=== PATIENT | female | born 1990 | race Caucasian/White ===

== ENCOUNTER 2025-10-08 18:35 | Emergency (ER) | payer BC, SELFPAY ==
[2025-10-08 18:36] VITALS: BP 149/102
--- NOTE | 2025-10-08 19:08 | ED.GENMED ---
History of Present Illness
General
Chief Complaint: Vaginal Bleeding
Source: patient
Exam Limitations: none
Time Seen by Provider: 10/08/25 19:01
History of Present Illness
History of Present Illness:
35-year-old G1, P0 currently 10 weeks along presents with light vaginal bleeding. She noticed a change in her discharge yesterday and noticed a pink tinge today. She states when she wiped. When she was in the bathroom she notes a small amount of
blood. No significant abdominal pain. She tried contacting the on-call OB but came here instead. No fevers or chest pain. No shortness of breath. No other complaints. She denies a large amount of blood or clot passing clots.
Phy Exam
Physical Exam
Physical Exam:
General: Well-appearing female no acute respiratory distress
HEENT: Normal cephalic atraumatic
Heart: Regular rate and rhythm
Lungs: Clear no wheeze abdomen is soft nontender nondistended
Extremities: No cyanosis
Course
Orders/Labs/Results
Orders:
Orders
10/08/25 19:06
US W Transvaginal Urgent
Reason For Exam: bleeding
10/08/25 20:01
Type+Screen Urgent
Beta HCG Quantitative Urgent
Is this a screen?: No
Complete Blood Count/With Diff Urgent
Comprehensive Metabolic Panel Urgent
10/08/25 20:10
Urinalysis Reflex To Culture Urgent
Date Specimen was Collected: 10/08/25
Time Specimen was Collected: 22:24
Abnormal Lab Results
10/08/25
20:01
MPV 10.7 H fL
(7.4-10.4)
Absolute Monos (auto) 0.8 H 10^3/uL
(0.1-0.6)
Sodium 134 L mmol/L
(135-145)
10/08/25 20:01
10/08/25 20:01
Vital Signs
Initial and Last Documented VS:
Initial Vital Signs
Temp Pulse Resp BP Pulse Ox
98.1 F 100 20 149/102 100
10/08/25 18:36 10/08/25 18:36 10/08/25 18:36 10/08/25 18:36 10/08/25 18:36
Last Documented Vital Signs
Temp Pulse Resp BP Pulse Ox
98 F 91 20 158/88 98
10/08/25 19:50 10/08/25 22:50 10/08/25 22:50 10/08/25 22:50 10/08/25 22:50
MDM/Problems Addressed
Differential Diagnosis Includes:
Patient describes mild vaginal bleeding currently 10 weeks . She did go through fertility treatments. She has had ultrasounds documenting IUP of a single embryo. She states she has blood type O+ but will recheck. Beta-hCG pending. Will
order ultrasound
*Pulse Oximetry
SaO2: 100
Patient hypoxic: no
*Critical Care Note
Total Time (30-74mins, 75-104mins- exclusive of procedures): Not Applicable
Update Note
Update Note:
Ultrasound reviewed. She is O+ blood type. Beta-hCG 5342. Ultrasound demonstrates sac measuring 7 weeks 4 days. There is no cardiac activity noted. Given the length of the sac there should be cardiac to be noted. This is suspicious
for early demise. Patient has no pain. She notes only spotting. RhoGAM not indicated. Discussed findings with OB. Will have her follow-up to discuss management options
ED Attending Note
-
Portions of this chart may have been created with voice recognition software.� Occasional wrong word or��sound alike� substitutions may have occurred due to the inherent limitations of voice recognition software.
Discharge Plan
Departure
Patient Disposition: Home (Routine Discharge)
Date of Disposition: 10/08/25
Time of Disposition: 22:56
Patient with high blood pressure during this ER visit?: No
Discharge Problem:
Threatened
Instructions: Threatened Miscarriage (DC)
Referrals:
Cece Bolton CRNP [Family Provider, Family Practice]
Activity Restrictions/Additional Instructions:
Please return here for any concerning findings. Otherwise follow-up with your [facility]ST[facility]
Interventions
Interventions:
*Risk Screen - Suicide Last Done: 10/08/25 18:36
*General Assessment Last Done: 10/08/25 18:36
*Neglect/Abuse Screening Last Done: 10/08/25 18:36
*ED- Fall Risk Assessment Last Done: 10/08/25 20:08
*ED COVID-19 Vaccine History Last Done: 10/08/25 19:45
*ED Influenza Vaccine History Last Done: 10/08/25 19:45
ED-Female Genitourinary Assessment Last Done: 10/08/25 20:06
Discharge Date and Time
Print Language: TRINIDADIAN
[2025-10-08 19:50] VITALS: BP 140/89
[2025-10-08 20:12] LABS: Hematocrit 41.5 % (37.0-47.0); Hemoglobin 13.8 g/dL (12.0-16.0); Mean Corp Hgb Conc. 33.3 g/dL (33.0-37.0); Mean Corpuscular Volume 83.2 fL (81.0-99.0); Nucleated Red Blood Cells % 0 %; Platelet Count 219 10^3/uL (130-400); Red Cell Dist. Width 13.6 % (11.5-14.5)
[2025-10-08 20:35] LABS: ALT (SGPT) 28 U/L (0-35); AST (SGOT) 27 U/L (14-36); Albumin 4.3 g/dl (3.5-5.0); Alkaline Phosphatase 62 U/L (38-126); Blood Urea Nitrogen 9 mg/dl (7-17); Calcium 9.6 mg/dl (8.4-10.2); Carbon Dioxide 23 mmol/L (22-30); Chloride 104 mmol/L (98-107); Glucose 82 mg/dl (70-99); Potassium 4.2 mmol/L (3.5-5.1); Sodium 134 mmol/L (135-145); Total Protein 7.7 g/dl (6.3-8.2); eGFR > 60.00
[2025-10-08 20:48] VITALS: BMI 46.6
[2025-10-08 22:50] VITALS: BP 158/88
== END 2025-10-08 23:20 | disposition home or self-care (01) ==
LOC: EMR 18:35
PROVIDERS: Physician Assistant; EMERGENCY PHYSICIAN Emergency Medicine; FAMILY PHYSICIAN Nurse Practitioner Family; REFERRING PHYSICIAN Obstetrics & Gynecology
DX: O20.0 Threatened abortion (principal); O09.511 Supervision of elderly primigravida, first trimester; Z3A.10 10 weeks gestation of pregnancy
CPT/HCPCS: 99284; 76801; 76817; 80053; 84702; 85025; 86850; 86900; 86901

== ENCOUNTER 2025-10-13 03:30 | Emergency (ER) | payer BC, SELFPAY ==
[2025-10-13 03:32] VITALS: BP 127/98
[2025-10-13 03:49] VITALS: BMI 47.6
[2025-10-13 03:51] VITALS: BP 121/89
[2025-10-13 04:00] VITALS: BP 123/83
[2025-10-13] MEDS: NSS 1000 IV (04:32)
--- NOTE | 2025-10-13 04:49 | ED.GENMED ---
History of Present Illness
<Kristin Haynes DO - Last Filed: 10/14/25 04:40>
General
Chief Complaint: Problems
Source: patient, spouse, previous radiology exam (Pelvic ultrasound October 08 showing IUP at 7 weeks with pole but no cardiac activity) and previous hospital records (ED visit from 5 days ago, October 08)
Exam Limitations: none
Time Seen by Provider: 10/13/25 03:41
Nursing documentation reviewed up to this point in time: agreed with
History of Present Illness
History of Present Illness:
This is a 35-year-old woman 2 para 1-0-0-1 who initially presented to this ED 5 days ago, October 08 with complaints of light vaginal bleeding/spotting. She is known to be , following with fertility specialist and had an outpatient
ultrasound several weeks ago showing single viable IUP. By dates on October 08 she was 10 weeks . Ultrasound on October 08 showed IUP measuring only 7 weeks with pole without cardiac activity. hCG of only 5300. Consistent with
demise.
She follows with [facility] and plan was for D&E that is scheduled for October 14. Yesterday however she began with heavy vaginal bleeding and cramping that seemed to improve yesterday evening but then worsened again at 130
this morning passing a fair amount of clots and she continues with lower abdominal cramping. She is unsure if she has passed a sac. She denies dizziness nor lightheadedness.
She did call her COTTON CLASSER and was instructed to come to the ED for further evaluation.
Prior records reviewed. Type and Rh O+.
Past History
<DO Faustina Godfrey Last Filed: 10/14/25 04:40>
Past History
ED Past Medical History: HTN
ED Past Surgical History: Gynecological (Dermoid cyst removal)
Social History
Tobacco: Non-smoker
Alcohol: None
Drug: None
Personal:
Living: with family
Employment: Employed
Family History
Family History: Other (Noncontributory)
Phy Exam
<Kristin Haynes DO - Last Filed: 10/14/25 04:40>
Physical Exam
Physical Exam:
GENERAL: 35-year-old woman appears her stated age, awake and alert, pleasant, appears in no acute distress. Hemodynamically stable. is accompanying.
EYE: anicteric
NECK: Supple, nontender, no meningismus, no significant adenopathy.
ENT: oral mucosa is moist. No rhinorrhea.
CARDIAC: Regular rate and rhythm. no murmur.
LUNGS: Clear breath sounds bilaterally, no acute respiratory distress, no wheezes/rales/rhonchi
ABDOMEN: Soft, nondistended, minimal tenderness suprapubic region with deep palpation only, no r/g, no cvat. normoactive BS.
NEUROLOGICAL: Alert and oriented x3, no focal neuro deficits. Gait is steady.
SKIN: Warm and dry, normal color, skin intact. No rash.
MUSCULOSKELETAL: No C/C/E. peripheral pulses are full and equal b/l. No palpable tenderness.
PSYCH: Normal and appropriate interaction.
Course
<Kristin Haynes, DO - Last Filed: 10/14/25 04:40>
Orders/Labs/Results
Orders:
Orders
10/13/25 04:13
0.9% Sodium Chloride 1000 ml [Nss] 1,000 ml IV BOLUS
10/13/25 04:14
US W Transvaginal Urgent
Reason For Exam: incomplete AB, 10 weeks by dates- demise
10/13/25 04:20
Beta HCG Quantitative Urgent
Is this a screen?: No
10/13/25 06:05
Complete Blood Count/With Diff Urgent
Comment: REDRAW
Abnormal Lab Results
10/13/25
06:05
MPV 10.5 H fL
(7.4-10.4)
10/13/25 06:05
Vital Signs
Initial and Last Documented VS:
Initial Vital Signs
Temp Pulse Resp BP Pulse Ox
98.5 F 99 18 127/98 98
10/13/25 03:32 10/13/25 03:32 10/13/25 03:32 10/13/25 03:32 10/13/25 03:32
Last Documented Vital Signs
Temp Pulse Resp BP Pulse Ox
98.5 F 84 18 111/75 100
10/13/25 03:32 10/13/25 03:52 10/13/25 03:52 10/13/25 07:32 10/13/25 07:34
Information
Weeks gestation: N/A (N/A, demise in first trimester)
Location: N/A
<Avery Dexter, DO - Last Filed: 10/13/25 07:16>
Orders/Labs/Results
Orders:
Orders
10/13/25 04:13
0.9% Sodium Chloride 1000 ml [Nss] 1,000 ml IV BOLUS
10/13/25 04:14
US W Transvaginal Urgent
Reason For Exam: incomplete AB, 10 weeks by dates- demise
10/13/25 04:20
Beta HCG Quantitative Urgent
Is this a screen?: No
10/13/25 06:05
Complete Blood Count/With Diff Urgent
Comment: REDRAW
Abnormal Lab Results
10/13/25
06:05
MPV 10.5 H fL
(7.4-10.4)
10/13/25 06:05
Vital Signs
Initial and Last Documented VS:
Initial Vital Signs
Temp Pulse Resp BP Pulse Ox
98.5 F 99 18 127/98 98
10/13/25 03:32 10/13/25 03:32 10/13/25 03:32 10/13/25 03:32 10/13/25 03:32
Last Documented Vital Signs
Temp Pulse Resp BP Pulse Ox
98.5 F 84 18 111/75 100
10/13/25 03:32 10/13/25 03:52 10/13/25 03:52 10/13/25 07:32 10/13/25 07:34
<Kristin Haynes DO - Last Filed: 10/14/25 04:40>
MDM/Problems Addressed
Differential Diagnosis Includes:
Patient presents with heavy vaginal bleeding with known early demise.
Concern for incomplete miscarriage, retained products of conception.
Thus far remains hemodynamically stable and denies lightheadedness nor dizziness, nothing to suggest acute blood loss anemia.
Will initiate IV fluids, will check CBC as well as quantitative hCG and will check ultrasound assess for retained products of conception.
MDM/Problems Addressed:
As above.
<Kristin Haynes DO - Last Filed: 10/14/25 04:40>
*Radiology
Radiology exam reviewed: preliminary read by ED provider
*Pulse Oximetry
SaO2: 99
Oxygen Mode of Delivery: Room air
Patient hypoxic: no
*Critical Care Note
Total Time (30-74mins, 75-104mins- exclusive of procedures): Not Applicable
<Kristin Haynes DO - Last Filed: 10/14/25 04:40>
Update Note
Update Note:
06:15
Patient returns of ultrasound.
She continues with some lower abdominal cramping but improved. Less bleeding now that she is lying Semi-Walter.
She remains hemodynamically stable.
hCG is dropped to 1200.
Ultrasound results pending but upon my review there appears to be a small gestational sac superior aspect of the fundus.
Case discussed with PAPER WRAPPING MACHINE OPERATOR, similar findings upon her review of ultrasound.
COTTON CLASSER, Dr. Huang suspects patient will require D&C. She requests type and screen to be performed. Will be down to evaluate at bedside.
0636 patient seen by OB. for OR. final u/s read pending
0713 after US report, OB reevaluated pt and clears for d/c. OB to follow HCG.
<Avery Dexter, DO - Last Filed: 10/13/25 07:16>
Update Note
Update Note:
06:15
Patient returns of ultrasound.
She continues with some lower abdominal cramping but improved. Less bleeding now that she is lying Semi-Walter.
She remains hemodynamically stable.
hCG is dropped to 1200.
Ultrasound results pending but upon my review there appears to be a small gestational sac superior aspect of the fundus.
Case discussed with PAPER WRAPPING MACHINE OPERATOR, similar findings upon her review of ultrasound.
COTTON CLASSER, Dr. Huang suspects patient will require DNA. She requests type and screen to be performed. Will be down to evaluate at bedside.
0636 patient seen by OB. for OR. final u/s read pending
07 after US report, OB reevaluated pt and clears for d/c. OB to follow HCG.
ED Attending Note
<Kristin Haynes, DO - Last Filed: 10/14/25 04:40>
-
Portions of this chart may have been created with voice recognition software.� Occasional wrong word or��sound alike� substitutions may have occurred due to the inherent limitations of voice recognition software.
Discharge Plan
Departure
Patient Disposition: Home (Routine Discharge)
Date of Disposition: 10/13/25
Time of Disposition: 06:17
Patient with high blood pressure during this ER visit?: No
Condition: Fair
Discharge Problem:
Miscarriage
Instructions: Miscarriage (DC)
Referrals:
Cece Bolton CRNP [Family Provider, Family Practice]
Stand Alone Forms: Return to Work
Activity Restrictions/Additional Instructions:
Please follow-up with OB as planned and have your hCG repeated as advised by Dr. Arellano. Return immediately for lightheadedness, passing out episode, increased bleeding, worsening pain or any other concerns
Interventions
Interventions:
*Risk Screen - Suicide Last Done: 10/13/25 03:32
*General Assessment Last Done: 10/13/25 03:32
*Neglect/Abuse Screening Last Done: 10/13/25 03:50
*ED- Fall Risk Assessment Last Done: 10/13/25 03:32
*ED COVID-19 Vaccine History Last Done: 10/13/25 03:32
*ED Influenza Vaccine History Last Done: 10/13/25 03:32
*Nursing Disposition Last Done: 10/13/25 07:40
ED-Female Genitourinary Assessment Last Done: 10/13/25 03:50
Discharge Date and Time
Discharge Date/Time: 10/13/25 07:40
Print Language: SAMI
[2025-10-13 06:15] LABS: Hematocrit 38.5 % (37.0-47.0); Hemoglobin 12.9 g/dL (12.0-16.0); Mean Corp Hgb Conc. 33.5 g/dL (33.0-37.0); Mean Corpuscular Volume 83.9 fL (81.0-99.0); Nucleated Red Blood Cells % 0 %; Platelet Count 178 10^3/uL (130-400); Red Cell Dist. Width 13.5 % (11.5-14.5)
--- NOTE | 2025-10-13 07:19 | CON.MD ---
Consultation - Medical
-
Consult: vaginal bleeding, miscarriage
HPI: Patient is a 35yo who presented to the ED with complaints of heavy vaginal bleeding. She was seen in the ED on 10/08 and had an US that showed a gestational sac with pole and no cardiac motion, consistent with early
loss. She started having vaginal bleeding and cramping yesterday afternoon. She reports 2 instances where she filled most of a pad. She is unsure if she passed a gestational sac. She says the bleeding improved, but overnight she started having heavy
bleeding and went through 2 rolls of toilet paper in less than an hour so she came to the ED for evaluation. She was planning on a D&E on Monday. She said she passed some clots since she has been in the ED. She said her cramping is greatly improved
and her bleeding has also decreased.
PMHx: PCOS, cHTN, BMI 48
Meds: denies
Surghx: open R ovarian cystectomy for dermoid
All: PCN- hives
Socialhx: denies tobacco, etoh or illicit drug use
Famhx: non-contributory
OBHx: 02/2023 8lb 3oz
O
BP 123/83
General: well appearing
Cardio: regular
Pulm: no increased work of breathing
Labs: Hgb 12.9, Plt 178
Hc (5342 on 10/08)
US: The intrauterine gestational sac is no longer seen. The cervix is open, with blood products in the endometrial and endocervical canals. Findings are consistent with early loss. Within the endometrial cavity is a 9x8mm finding with
suggestion of a fluid level, although no internal vascularity on color Doppler. While this is considered more likely to represent small blood products with layer hematocrit than it is avascular retained products of conception, recommend continued
downtrending beta hcg to 0 and reimaging as indicated. Ovaries normal. No free fluid.
A/P: 35yo presents with vaginal bleeding, found to have spontaneous
- beta hcg downtrending and US report reviewed. The gestational sac is no longer seen. Consistent with spontaneous . Patient reports her bleeding has improved and she is no longer feeling cramping.
- Patient hemodynamically stable
- Discussed discharge home with hcg trend weekly until negative. Order sent to [facility] for patient to get next week. Strict ED return precautions reviewed- heavy vaginal bleeding, signs of infection or severe abdominal pain. Patient to follow up in
the office in 2 weeks
[2025-10-13 07:32] VITALS: BP 111/75
== END 2025-10-13 07:40 | disposition home or self-care (01) ==
LOC: EMR 03:30
PROVIDERS: EMERGENCY PHYSICIAN Emergency Medicine; FAMILY PHYSICIAN Nurse Practitioner Family
DX: O03.9 Complete or unspecified spontaneous abortion without complication (principal); I10 Essential (primary) hypertension
CPT/HCPCS: 96360; 99284; 76801; 76817; 84702; 85025